=== PATIENT | female | born 1935 | race Caucasian/White ===

== ENCOUNTER 2018-04-18 12:43 | Emergency (ER) | payer OTHER ==
[~2018-04-18] VITALS: Ht 172.7 cm; Wt 111.6 kg
[2018-04-18] MEDS ORDERED: TESSALON PERLE100 MG BU ×2 (13:23→13:25)
[2018-04-18] MEDS ORDERED: VENTOLIN HFA18 GM INH (13:25)
[2018-04-18] MEDS ORDERED: DOXYCYCLINE HY100 MG PO (13:25)
[2018-04-18] MEDS ORDERED: ALBUTEROL/IPRATROPIUM 3 ML NEB NEB ONE (14:00)
--- NOTE | 2018-04-18 14:00 | Diagnostic Imaging Report ---
EXAMINATION: CXR 2 VIEW - HOPD INDICATION: Cough, congestion, history of bronchitis ^[id number] ^[id number] COMPARISON: None FINDINGS: PA and lateral views TUBES and LINES: None. LUNGS: The lungs are diffusely hyperinflated consistent with small airways disease. There is bilateral apical pleural parenchymal scarring. There is no evidence of pneumonia or pulmonary edema. PLEURA: No pleural effusion or pneumothorax. HEART AND MEDIASTINUM: The cardiomediastinal silhouette is unremarkable. There are calcifications of the aortic arch. BONES AND SOFT TISSUES: The bones are diffusely demineralized. No focal osseous lesions. Soft tissues are unremarkable. UPPER ABDOMEN: No free air under the diaphragm. IMPRESSION: No acute thoracic abnormality. Signed by: Dr. Tito Manuel MD on 04/18/2018 1:56 PM
== END 2018-04-18 14:10 | disposition home or self-care (01) ==
LOC: FSED 12:43
DX: R50.9 Fever, unspecified (principal); R05 Cough; J20.9 Acute bronchitis, unspecified; I10 Essential (primary) hypertension; E11.9 Type 2 diabetes mellitus without complications; E78.00 Pure hypercholesterolemia, unspecified; E03.9 Hypothyroidism, unspecified; I48.91 Unspecified atrial fibrillation
CPT/HCPCS: 71046; 99283